=== PATIENT | male | born 1950 | race Caucasian/White ===

== ENCOUNTER → 2016-03-30 | Outpatient (CLI) | payer OTHER ==
[~2016-03-30] MED LIST: ALL300 PO; APIX1TAB3 PO; ATOR80TA PO; CLR10 PO; CZR50 PO; DOXY-300 PO; FELO5TAB PO; FINA5TAB PO; FRS/40 PO; METO50TA16 PO; OMEG10007 PO; POTA-335 PO
[2016-03-30 13:49] LABS: ESTIMATED AVERAGE GLUCOSE 128 mg/dl; HA1C FLAG Normal (Normal)
[2016-03-30 14:35] LABS: BLOOD UREA NITROGEN 24 mg/dl (7-18); BUN/CREATININE RATIO 17.4 (10-20); CALCIUM 9.2 mg/dl (8.5-10.1); CARBON DIOXIDE 29 mmol/L (21-32); CHLORIDE 101 mmol/L (98-107); GLUCOSE 116 mg/dl (70-99); MAGNESIUM 2.1 mg/dl (1.8-2.4); POTASSIUM 4.2 mmol/L (3.5-5.1); SODIUM 139 mmol/L (136-145)
== END | disposition home or self-care (01) ==
LOC: C.LABBC 10:02
PROVIDERS: ATTEND Internal Medicine Geriatric Medicine
DX: I10 Essential (primary) hypertension (principal); R60.9 Edema, unspecified; R73.9 Hyperglycemia, unspecified; E87.6 Hypokalemia; E83.42 Hypomagnesemia; I48.0 Paroxysmal atrial fibrillation

== ENCOUNTER → 2016-08-18 | Outpatient (CLI) | payer OTHER ==
[2016-08-18 12:28] LABS: BASO % 0.8 %; BASO ABS # 0.07 K/uL (0-0.2); COMPLETE YES; EOS % 2.8 %; HEMATOCRIT 41.5 % (42-52); IG% 0.9 %; LYMPH % 26.9 %; LYMPH ABS # 2.27 K/uL (1.2-3.4); MEAN CELL VOLUME 95.6 fL (80-100); MEAN CORPUSCULAR HEMOGLOBIN 32.9 pg (25-34); MEAN CORPUSCULAR HGB CONC 34.5 g/dl (32-36); MEAN PLATELET VOLUME 9.9 fL (7.4-10.4); MONO % 8.9 %; NEUT % 59.7 %; PLATELET COUNT 193 K/uL (130-400); RED BLOOD COUNT 4.34 M/uL (4.7-6.1); WHITE BLOOD COUNT 8.44 K/uL (4.8-10.8)
[2016-08-18 12:51] LABS: BLOOD UREA NITROGEN 26 mg/dl (7-18); BUN/CREATININE RATIO 21.4 (10-20); CARBON DIOXIDE 29 mmol/L (21-32); CHLORIDE 101 mmol/L (98-107); CHOLESTEROL 158 mg/dl (0-200); ESTIMATED AVERAGE GLUCOSE 126 mg/dl; GLUCOSE 116 mg/dl (70-99); HA1C FLAG Normal (Normal); POTASSIUM 3.7 mmol/L (3.5-5.1); SODIUM 138 mmol/L (136-145); URIC ACID 8.2 mg/dl (2.6-7.2)
[2016-08-18 12:56] LABS: ALKALINE PHOSPHATASE 67 U/L (45-117); ALT/SGPT 64 U/L (12-78); AST/SGOT 47 U/L (15-37); HDL CHOLESTEROL 53 mg/dl; LDL CHOLESTEROL CALCULATED 65 mg/dl; TRIGLYCERIDES 201 mg/dl (0-150); VERY LOW DENSITY LIPOPROT CALC 40 mg/dl
== END | disposition home or self-care (01) ==
LOC: C.LABPBG 09:04
PROVIDERS: ATTEND Internal Medicine Geriatric Medicine
DX: Z11.59 Encounter for screening for other viral diseases (principal); I10 Essential (primary) hypertension; R73.9 Hyperglycemia, unspecified; E87.6 Hypokalemia; I48.2 Chronic atrial fibrillation; E83.42 Hypomagnesemia; I25.10 Atherosclerotic heart disease of native coronary artery without angina pectoris

== ENCOUNTER → 2017-01-27 | Outpatient (CLI) | payer OTHER ==
--- NOTE | 2017-01-27 14:47 | DIAGNOSTIC IMAGING REPORT ---
MRI OF THE LUMBAR SPINE WITHOUT CONTRAST CLINICAL HISTORY: Right-sided lumbar radiculopathy. COMPARISON STUDY: Lumbar spine radiographs September 23, 2005. TECHNIQUE: Utilizing a 1.5 Kamille magnet and dedicated coil, multiplanar, multiecho imaging of the lumbar spine was performed without IV contrast. FINDINGS: For purposes of numbering on this exam, the L5-S1 disc space is assigned to axial image 27 of 30. Alignment of the lumbar spine is anatomic. Vertebral body heights are maintained. There is no intracanalicular mass or fluid collection. Conus terminates at the upper L2 level. Paravertebral soft tissues are unremarkable. L1-2: The central canal and neural foramen are patent L2-3: The central canal and neural foramen are patent. L3-4: There is facet arthrosis with ligamentous hypertrophy. The central canal and neural foramen are patent. L4-5: There is disc bulge with ligamentous hypertrophy, facet arthrosis. This results in moderate narrowing of the central canal and lateral recesses with mild during of both neural foramen. L5-S1: Note is made of a right paracentral disc extrusion that measures 8 x 7 x 6 mm. This results in moderate narrowing of the right lateral recess with mass effect upon the descending right S1 nerve root. There is facet arthrosis with ligamentous hypertrophy at this level. There is mild during of the central canal and both neural foramen. IMPRESSION: 1. 8 x 7 x 6 mm right paracentral disc extrusion at L5-S1 that results in narrowing of the right lateral recess with mass effect upon the descending right S1 nerve root. This could be correlated with a right S1 radiculopathy. 2. Moderate central canal and lateral recess narrowing at L4-L5 due to disc bulge, ligamentous hypertrophy and facet arthrosis. Mild central canal narrowing at L5-S1. Electronically signed by: Erick Kathleen M.D. 01/27/2017 2:46 PM Dictated Date/Time: 01/27/2017 2:37 PM
== END | disposition home or self-care (01) ==
LOC: C.MRIBC 13:26
PROVIDERS: ATTEND Internal Medicine Geriatric Medicine
DX: M51.17 Intervertebral disc disorders with radiculopathy, lumbosacral region (principal); M47.26 Other spondylosis with radiculopathy, lumbar region

== ENCOUNTER 2017-05-29 15:28 | Emergency (ER) | payer OTHER ==
[~2017-05-29] VITALS: Ht 185.4 cm; Wt 124.3 kg
[~2017-05-29 15:28] MED LIST changes: -CLR10 PO; -DOXY-300 PO; +INDO-22 PO; -METO50TA16 PO
[2017-05-29 15:33] VITALS: TEMP 37.2
[2017-05-29] MEDS ORDERED: ALBUT/IPRATROP 3MG/0.5MG NEB 3 ML VIAL INH STA (15:55)
[2017-05-29 16:15] VITALS: O2SAT 96; Ht 185.4 cm; Wt 124.3 kg
[2017-05-29] MEDS ORDERED: POTA20TA13 PO (16:16)
[2017-05-29] MEDS ORDERED: ALL300 PO (16:16)
[2017-05-29] MEDS ORDERED: LOSA100T65 PO (16:16)
[2017-05-29] MEDS ORDERED: LSX80 PO (16:16)
[2017-05-29] MEDS ORDERED: METO50TA16 PO (16:16)
--- NOTE | 2017-05-29 16:27 | DIAGNOSTIC IMAGING REPORT ---
CHEST ONE VIEW PORTABLE CLINICAL HISTORY: EVALUATE RESPIRATORY DISTRESS.DYSPNEA dyspnea COMPARISON STUDY: 11/02/2014 FINDINGS: The bones soft tissues and hemidiaphragms are normal. The cardiomediastinal silhouette is normal. The lungs are clear. The pulmonary vasculature is normal. IMPRESSION: Negative chest. The above report was generated using voice recognition software. It may contain grammatical, syntax or spelling errors. Electronically signed by: Williams Drake M.D. 05/29/2017 4:26 PM Dictated Date/Time: 05/29/2017 4:25 PM
[2017-05-29 16:28] LABS: BASO % 0.8 %; BASO ABS # 0.05 K/uL (0-0.2); EOS % 0.6 %; EOS ABS # 0.04 K/uL (0-0.5); HEMATOCRIT 39.4 % (42-52); HEMOGLOBIN 13.8 g/dL (14.0-18.0); IG# 0.02 K/uL (0.00-0.02); LYMPH % 19.7 %; LYMPH ABS # 1.22 K/uL (1.2-3.4); MEAN CELL VOLUME 97.3 fL (80-100); MEAN CORPUSCULAR HEMOGLOBIN 34.1 pg (25-34); MEAN PLATELET VOLUME 9.2 fL (7.4-10.4); MONO % 16.5 %; MONO ABS # 1.02 K/uL (0.11-0.59); NEUT % 62.1 %; NEUT ABS # 3.84 K/uL (1.4-6.5); PLATELET COUNT 165 K/uL (130-400); RED CELL DISTRIBUTION WIDTH CV 13.6 % (11.5-14.5); RED CELL DISTRIBUTION WIDTH SD 48.6 fL (36.4-46.3); WHITE BLOOD COUNT 6.19 K/uL (4.8-10.8)
[2017-05-29 16:46] LABS: ALBUMIN 3.6 gm/dl (3.4-5.0); CREATININE 1.26 mg/dl (0.60-1.40)
[2017-05-29 16:49] LABS: TOTAL PROTEIN 7.6 gm/dl (6.4-8.2)
[2017-05-29 17:08] LABS: INFLUENZA B ANTIGEN POS for Influ B (NEG)
[2017-05-29] MEDS ORDERED: OSELTAMIVIR PHOSPHATE 75 MG CAP PO STA (17:16)
[2017-05-29 17:34] VITALS: BP 137/71; PULSE 70; O2SAT 96
[2017-05-29] MEDS ORDERED: OSEL75CA12 PO (17:38)
[2017-05-29] MEDS ORDERED: PRED20TA PO (17:38)
[2017-05-29] MEDS ORDERED: ALBUTEROL HFA 8 GM INHALER INH ONE (17:49)
--- NOTE | 2017-05-29 22:52 | EMERGENCY ROOM VISIT NOTE ---
History Report prepared by Musa: Florence Peterson Under the Supervision of: Dr. Vlad Ayoub M.D. First contact with patient: 15:37 Chief Complaint: CONGESTION Stated Complaint: CHEST CONGESTION History of Present Illness The patient is a 66 year old male who presents to the Emergency Room with complaints of chest congestion beginning 5 days ago. The patient also reports having a fever, body aches, a productive cough, and shortness of breath. The patient states that he was seen in the ED three times in his life and that in all these cases he was here for pneumonia, and reports that he was admitted to the hospital twice. The patient states that he is on Eliquis for atrial fibrillation, but denies missing any dosages. The patient reports a history of coronary artery disease, but denies a history of diabetes and asthma. He reports drinking normally the last couple of days but that he has not been eating as much, but still enough. The patient does not report being around anyone sick. The patient denies a history of smoking and states that he does not wear Oxygen at home. Pt denies LOC, headache, chills, diaphoresis, visual changes, neck pain, chest pain, nausea, vomiting, abdominal pain, back pain, melena, hematochezia, urinary symptoms, numbness, weakness, lymphadenopathy, rash, or other complaints. Source of History: patient Onset: 5 days ago Position: chest Quality: other (congestion ) Associated Symptoms: + fevers, + cough, + SOB, No abdominal pain Note: additional symptom: body aches Review of Systems See HPI for pertinent positives and negatives. A total of ten systems were reviewed and were otherwise negative. Past Medical & Surgical Medical Problems: (1) Arthritis (2) Atrial fibrillation (3) BPH (benign prostatic hyperplasia) (4) CAD (coronary artery disease) (5) Gout (6) Heart disease (7) Hypertension (8) Prostate cancer (9) Sleep apnea Family History FHx: cancer FHx: heart disease Social History Smoking Status: Never Smoker Drug Use: none Marital Status: Housing Status: lives with family Occupation Status: employed Current/Historical Medications Scheduled Allopurinol (Allopurinol), 300 MG PO DAILY Apixaban (Eliquis), 5 MG PO BID Atorvastatin (Lipitor), 80 MG PO QAM Felodipine (Plendil), 10 MG PO QAM Finasteride (Proscar), 5 MG PO QAM Fish Oil (Corona-3), 1 CAP PO DAILY Furosemide (Furosemide), 80 MG PO BID Indomethacin (Indocin), 25 MG PO DAILY Losartan Potassium (Cozaar), 100 MG PO DAILY Metoprolol Tartrate (Lopressor) (Lopressor), 50 MG PO BID Oseltamivir (Tamiflu), 75 MG PO BID Potassium Chloride Microencaps (Potassium Chloride Er), 20 MEQ PO DAILY Prednisone (Prednisone), 40 MG PO DAILY Allergies Coded Allergies: Dust (Verified Allergy, Intermediate, upper respiratory., 07/21/15) Physical Exam Vital Signs Date Time Temp Pulse Resp B/P (MAP) Pulse Ox O2 Delivery O2 Flow Rate FiO2 05/29/17 17:34 70 18 137/71 96 Room Air 05/29/17 16:17 72 05/29/17 16:15 96 Room Air 05/29/17 16:15 96 Room Air 05/29/17 15:33 37.2 88 20 144/77 94 Room Air Physical Exam GENERAL: Awake, alert, mildly ill-appearing, in no distress HENT: Normocephalic, atraumatic. Oropharynx unremarkable. EYES: Normal conjunctiva. Sclera non-icteric. NECK: Supple. No nuchal rigidity. FROM. No masses. RESPIRATORY: Normal respiratory effort. Scattered rhonchi and wheezing more so on the right than on the left. CARDIAC: Normal rate. Irregular rhythm. No murmurs. No rubs. Extremities warm and well perfused. Pulses equal. No JVD. GI: Soft, non-distended. No tenderness to palpation. No rebound or guarding. No masses. RECTAL: Deferred. MUSCULOSKELETAL: Atraumatic. Chest examination reveals no tenderness. The back is symmetrical on inspection without obvious abnormality. There is no CVA tenderness to palpation. No joint edema. LOWER EXTREMITIES: Calves are equal size bilaterally and non-tender. No edema. Chronic venous discoloration in lower extremities. NEURO: Normal sensorium. No sensory or motor deficits noted. SKIN: No rash or jaundice noted. Medical Decision & Procedures ER Provider Diagnostic Interpretation: Radiology results as stated below per my review and radiologist interpretation: CHEST ONE VIEW PORTABLE CLINICAL HISTORY: EVALUATE RESPIRATORY DISTRESS.DYSPNEA dyspnea COMPARISON STUDY: 11/02/2014 FINDINGS: The bones soft tissues and hemidiaphragms are normal. The cardiomediastinal silhouette is normal. The lungs are clear. The pulmonary vasculature is normal. IMPRESSION: Negative chest. The above report was generated using voice recognition software. It may contain grammatical, syntax or spelling errors. Electronically signed by: Williams Drake M.D. 05/29/2017 4:26 PM Dictated Date/Time: 05/29/2017 4:25 PM Laboratory Results 05/29/17 16:00 Red Blood Count 4.05, Mean Corpuscular Volume 97.3, Mean Corpuscular Hemoglobin 34.1, Mean Corpuscular Hemoglobin Concent 35.0, Mean Platelet Volume 9.2, Neutrophils (%) (Auto) 62.1, Lymphocytes (%) (Auto) 19.7, Monocytes (%) (Auto) 16.5, Eosinophils (%) (Auto) 0.6, Basophils (%) (Auto) 0.8, Neutrophils # (Auto ) 3.84, Lymphocytes # (Auto) 1.22, Monocytes # (Auto) 1.02, Eosinophils # (Auto ) 0.04, Basophils # (Auto) 0.05 05/29/17 16:00 Test 05/29/17 16:00 White Blood Count 6.19 K/uL (4.8-10.8) Red Blood Count 4.05 M/uL (4.7-6.1) Hemoglobin 13.8 g/dL (14.0-18.0) Hematocrit 39.4 % (42-52) Mean Corpuscular Volume 97.3 fL (80-100) Mean Corpuscular Hemoglobin 34.1 pg (25-34) Mean Corpuscular Hemoglobin Concent 35.0 g/dl (32-36) Platelet Count 165 K/uL (130-400) Mean Platelet Volume 9.2 fL (7.4-10.4) Neutrophils (%) (Auto) 62.1 % Lymphocytes (%) (Auto) 19.7 % Monocytes (%) (Auto) 16.5 % Eosinophils (%) (Auto) 0.6 % Basophils (%) (Auto) 0.8 % Neutrophils # (Auto) 3.84 K/uL (1.4-6.5) Lymphocytes # (Auto) 1.22 K/uL (1.2-3.4) Monocytes # (Auto) 1.02 K/uL (0.11-0.59) Eosinophils # (Auto) 0.04 K/uL (0-0.5) Basophils # (Auto) 0.05 K/uL (0-0.2) RDW Standard Deviation 48.6 fL (36.4-46.3) RDW Coefficient of Variation 13.6 % (11.5-14.5) Immature Granulocyte % (Auto) 0.3 % Immature Granulocyte # (Auto) 0.02 K/uL (0.00-0.02) Anion Gap 6.0 mmol/L (3-11) Est Creatinine Clear Calc Drug Dose 77.5 ml/min Estimated GFR () 67.5 Estimated GFR (Non- 58.2 BUN/Creatinine Ratio 21.8 (10-20) Calcium Level 9.0 mg/dl (8.5-10.1) Total Bilirubin 0.6 mg/dl (0.2-1) Aspartate Amino Transf (AST/SGOT) 64 U/L (15-37) Alanine Aminotransferase (ALT/SGPT) 55 U/L (12-78) Alkaline Phosphatase 76 U/L (45-117) Total Protein 7.6 gm/dl (6.4-8.2) Albumin 3.6 gm/dl (3.4-5.0) Globulin 4.0 gm/dl (2.5-4.0) Albumin/Globulin Ratio 0.9 (0.9-2) Influenza Type A Antigen Neg for Influ A (NEG) Influenza Type B Antigen POS for Influ B (NEG) Laboratory results reviewed by me Medications Administered Medications (Trade) Dose Ordered Sig/Dolly Route Start Time Stop Time Status Last Admin Dose Admin Albuterol/ Ipratropium (Duoneb) 3 ml NOW STAT INH 05/29/17 15:55 05/29/17 15:58 DC 05/29/17 16:11 3 ML Prednisone (PredniSONE TAB) 40 mg NOW STAT PO 05/29/17 17:16 05/29/17 17:18 DC 05/29/17 17:35 40 MG Oseltamivir Phosphate (Tamiflu Cap) 75 mg NOW STAT PO 05/29/17 17:16 05/29/17 17:18 DC 05/29/17 17:35 75 MG ECG Per My Interpretation Indication: other (chest congestion ) Rate (beats per minute): 79 Rhythm: atrial fibrillation Findings: nonspecific-ST abn, no acute ischemic change, prolonged QT Change: no significant change (from 11/02/14) ED Course 1544: The patient was evaluated in room C10. A complete history and physical exam was performed. 1555: Ordered Duoneb 3 ml INH. 1716: Ordered Tamiflu Cap 75 mg PO, Prednisone 40 mg PO. 1720: I reevaluated the patient. Discussed results and discharge instructions: He verbalized understanding and agreement. The patient is ready for discharge. Medical Decision Prior records/ancillary studies reviewed. Triage Nursing notes reviewed and agree them. Additional history obtained from the family. The patient's history was concerning for flulike symptoms. Differential diagnosis: Etiologies such as pneumonia, COPD, reactive airway disease, influenza, CHF, cardiac ischemia, pulmonary embolism, pneumothorax, musculoskeletal, infections , gastrointestinal, as well as others were entertained. Physical examination: As above. The patient was not hypoxic. He had some wheezing but no significant increased work of breathing. ER treatment provided: DuoNeb On reassessment the patient felt better. Prednisone Tamiflu Diagnostic interpretation by me: The electrocardiogram was negative for pathologic change. The labs revealed an unremarkable CBC and chemistry panel. Imaging studies: Chest x-ray as above. The patient has influenza. He had some wheezing. He will be treated with prednisone, Tamiflu, and bronchodilator. He will have close follow-up with his primary physician. At the time of discharge she did also note that his PCP had started him on an antibiotic. By the evaluation outlined above emergent etiologies such as CHF, cardiac ischemia, pulmonary embolism, pneumonia, pneumothorax, musculoskeletal, infections, as well as others were deemed relatively unlikely. The patient was informed about the findings as listed above. All questions were answered and he was pleased with the treatment. Return instructions were outlined and the patient was discharged in stable condition. Outpatient prescription management: Prednisone Tamiflu Albuterol MDI Referral: The patient was referred back to his primary care physician for follow-up in 2 to 3 days for a recheck of the current condition. The chart was completed utilizing [employer] voice recognition software. Grammatical errors, random word insertions, pronoun errors, and incomplete sentences are an occasional consequence of this system due to software limitations, ambient noise, and hardware issues. Any formal questions or concerns about the content, text, or information contained within the body of this dictation should be directly addressed to the physician for clarification. Medication Reconcilliation Current Medication List: was personally reviewed by me Blood Pressure Screening Patient's blood pressure: Elevated blood pressure Blood pressure disposition: Referred to PCP Impression Primary Impression: Influenza B Additional Impression: Wheezing Scribe Attestation The scribe's documentation has been prepared under my direction and personally reviewed by me in its entirety. I confirm that the note above accurately reflects all work, treatment, procedures, and medical decision making performed by me. Departure Information Dispostion Home / Self-Care Prescriptions Prednisone (Prednisone) 20 Mg Tab 40 MG PO DAILY for 3 Days, #6 TAB Prov: Vlad Ayoub MD 05/29/17 Oseltamivir (Tamiflu) 75 Mg Cap 75 MG PO BID, #9 CAP Prov: Vlad Ayoub MD 05/29/17 Referrals Thomas Prescott M.D. (PCP) Forms HOME CARE DOCUMENTATION FORM, IMPORTANT VISIT INFORMATION Patient Instructions My [facility] Additional Instructions Tamiflu 75 mg twice daily for 5 days. Prednisone 40 mg: Once daily until the prescription is finished. Albuterol Inhaler: Take 2 puffs four times daily for seven days, then as needed. Acetaminophen(Tylenol) may be used for fever or pain. Use 1000mg every six hours as needed. Avoid using more than 4000mg in a 24 hour period. AND/OR Ibuprofen(Motrin, Advil) may be used for fever or pain. Use 600mg every six hours as needed. Take with food. Avoid using more than 2400mg in a 24 hour period. Do not use 2400mg per day for more than three consecutive days without physician direction. Prolonged inappropriate use can lead to stomach upset or ulcers. Controlling your fever with Tylenol and Ibuprofen as above will make you feel better. Rest and drink plenty of fluids. Avoid strenuous activity until your symptoms resolve and your breathing returns to normal. Return to the ER for chest pain, difficulty breathing, persistent fevers, vomiting, worsening of your condition, or as needed. Follow up with your primary physician in 2-3 days for a recheck of the current condition. Problem Qualifiers
== END 2017-05-29 17:56 | disposition home or self-care (01) ==
LOC: C.EDB 15:29 → C.EDC 17:56
DX: J10.1 Influenza due to other identified influenza virus with other respiratory manifestations (principal); R06.2 Wheezing; I48.91 Unspecified atrial fibrillation; I25.10 Atherosclerotic heart disease of native coronary artery without angina pectoris; M10.9 Gout, unspecified; I10 Essential (primary) hypertension; N40.0 Benign prostatic hyperplasia without lower urinary tract symptoms; Z79.01 Long term (current) use of anticoagulants; Z79.899 Other long term (current) drug therapy; Z91.048 Other nonmedicinal substance allergy status